=== PATIENT | male | born 1940 | race Caucasian/White ===

== ENCOUNTER → 2023-07-03 09:47 | Outpatient (REF) | payer OTHER, SELFPAY | LOC: HWRAD 09:47 | PROVIDERS: ATTENDING PHYSICIAN Specialist; FAMILY PHYSICIAN Family Medicine | DX: N18.32 Chronic kidney disease, stage 3b (principal); R31.9 Hematuria, unspecified | CPT/HCPCS: 76770 ==

== ENCOUNTER 2023-08-06 14:33 | Emergency (ER) | payer OTHER, SELFPAY ==
[2023-08-06 14:35] VITALS: BP 117/97
[2023-08-06 16:00] VITALS: BP 121/78
--- NOTE | 2023-08-06 17:21 | ED.GENMED ---
History of Present Illness
General
Chief Complaint: Head Injury
Source: patient
Exam Limitations: none
Time Seen by Provider: 08/06/23 15:05
Nursing documentation reviewed up to this point in time: agreed with
Travel History
Have you had any contact with someone who has COVID-19?: No
Do you have any symptoms of coronavirus? Fever > 100 degrees, chills, cough, shortness of breath, sore throat, loss of taste or smell, muscle aches, or headache?: No
History of Present Illness
History of Present Illness:
82 yr old male presents to the ER for evaluation of fall. Patient was outside of his house and slid down embankment hitting his left forehead/eyebrow area on the sidewalk. He denies loss of consciousness. He denies any headache nausea vomiting.
He is not on blood thinners. He also complains of left shoulder plain. He denies any neck or back pain.
Past History
Past History
ED Past Medical History: HTN
Social History
Living: with family
Employment: Employed
Phy Exam
General Physical Exam
General Presentation: no apparent distress
General age: appears stated age
General Skin: warm and dry
General Habitus: elderly
General Mental: alert
General Hydration: appears well hydrated
Eye Exam
Eye Exam: PERRL, EOMI and other (Left eyebrow with 1 cm left flap laceration)
Eye Exam General: PERRL: bilateral and EOM intact: bilateral
Pupil Exam: Bilateral: round and reactive
Neurological Exam
Neurological Exam: alert and oriented x3
Musculoskeletal Exam
Musculoskeletal Exam: other (Abrasion to left forehead normal inspection to left shoulder mildly tender throughout pain with abduction)
Skin Exam
Skin Exam: normal color and warm/dry
Psychiatric Exam
Psychiatric Exam: normal mood/affect
Course
Orders/Labs/Results
Orders:
Orders
08/06/23 14:39
Shoulder, Left, Trauma CR [CR Shoulder, Trauma - Left] Urgent
Comment:
Reason For Exam: injury
08/06/23 15:31
CT Cervical Spine W/o Iv Contr Urgent
Comment:
Reason For Exam: trauma
CT Head W/o Iv Contrast Urgent
Comment:
Reason For Exam: trauma
Tetanus/Diphth/Acelpertussis [Adacel] 0.5 ml IM .ONCE ONE
08/06/23 16:26
CT Upper Ext W/o Iv Cont Lt Urgent
Comment:
Reason For Exam: trauma
08/06/23 17:21
Wound Dressing- Treatment ONCE
Location of Wound: left head
Treatment of Wound: irrigate
Sling Left-Treatment ONCE
Acetaminophen [Tylenol] 650 mg PO NOW STA
08/06/23 17:57
Tetanus/Diphth/Acelpertussis [Adacel] 0.5 ml .ROUTE .STK-MED ONE
Vital Signs
Initial and Last Documented VS:
Initial Vital Signs
Temp Pulse Resp BP Pulse Ox
98 F 62 16 117/97 97
08/06/23 14:35 08/06/23 14:35 08/06/23 14:35 08/06/23 14:35 08/06/23 14:35
Last Documented Vital Signs
Temp Pulse Resp BP Pulse Ox
98 F 67 20 120/79 98
08/06/23 14:35 08/06/23 18:27 08/06/23 18:27 08/06/23 18:27 08/06/23 18:27
Procedures
Laceration Closure
Left Eye:
Status of Wound: clean
Size of Wound in cm: 1
Description of Wound Edges: flap-well vascularized
Preparation: cleaned with saline
Type of Closure: Dermabond-skin glue
MDM/Problems Addressed
Differential Diagnosis Includes:
Not limited to head injury, laceration, shoulder sprain strain versus fracture
MDM/Problems Addressed:
Patient is a 82-year-old male who slipped outside and hit his left head. He had no loss of consciousness. He is not on blood thinners. Patient complains of discomfort to his left shoulder. No headache nausea vomiting neck pain. Patient has an
abrasion to his forehead with a small minor flap laceration to his left eyebrow that was repaired as documented. CT head and cervical spine negative. Shoulder x-ray was done which showed concern for possible nondisplaced fracture CAT scan was done
which was recommended which was unremarkable for fracture. Patient remained very well-appearing in no acute distress no headache. Wound care reviewed shoulder symptoms possible sprain strain he is followed by Dr. Melo discussed importance of
outpatient follow-up.
*Radiology
Radiology exam reviewed: radiology read reviewed
*Pulse Oximetry
Patient hypoxic: no
*Critical Care Note
Total Time (30-74mins, 75-104mins- exclusive of procedures): Not Applicable
ED Attending Note
-
Portions of this chart may have been created with voice recognition software.� Occasional wrong word or��sound alike� substitutions may have occurred due to the inherent limitations of voice recognition software.
Discharge Plan
Departure
Patient Disposition: Home (Routine Discharge)
Date of Disposition: 08/06/23
Time of Disposition: 17:36
Patient with high blood pressure during this ER visit?: Yes
Condition: Fair
Covid-19: Not Applicable
Discharge Problem:
Fall, Left shoulder strain, Contusion, Laceration, Abrasion
Prescriptions:
No Action
oxycodone-acetaminophen [Percocet] 1 EACH tablet
1 tab PO PRN PRN (Reason: pain) Qty: 30 0RF
cephalexin 500 MG capsule
500 mg PO QID Qty: 28 0RF
Referrals:
Liang Melo MD [Active] -
Ant Gauthier MD [Family Provider] -
Activity Restrictions/Additional Instructions:
Ice shoulder as discussed for the next 24 hours 20 minutes at a time several times a day. Wear sling for support but remove several times a day and do range of motion exercises as discussed. Follow-up with family doctor in next several days and
orthopedics if needed
Eyelid laceration: Keep wound clean and dry for 24 hours after 24 hours you may lightly wet wound. Do not apply antibiotic ointment to the area as this will break the glue down the glue will flake off on its own within 5 to 7 days. Follow-up with
your family doctor for recheck of your wound.
For abrasion to left forehead you may wash with soap and water twice a day and apply small layer of antibiotic open to the area
Interventions
Interventions:
*Risk Screen - Suicide Last Done: 08/06/23 14:35
*General Assessment Last Done: 08/06/23 14:35
*Neglect/Abuse Screening Last Done: 08/06/23 14:35
*Nursing Disposition Last Done: 08/06/23 18:27
ED- Neurological Assessment Last Done: 08/06/23 16:00
ED-Skin Assessment Last Done: 08/06/23 16:00
Discharge Date and Time
Discharge Date/Time: 08/06/23 18:27
Print Language: FRISIAN
[2023-08-06] MEDS: TYLENOL 650 MG PO (17:56)
[2023-08-06] MEDS: ADACEL 0.5 ML IM (18:03)
[2023-08-06 18:27] VITALS: BP 120/79
== END 2023-08-06 18:27 | disposition home or self-care (01) ==
LOC: EMR 14:33
PROVIDERS: EMERGENCY PHYSICIAN Emergency Medicine; FAMILY PHYSICIAN Family Medicine
DX: S01.112A Laceration without foreign body of left eyelid and periocular area, initial encounter (principal); S46.912A Strain of unspecified muscle, fascia and tendon at shoulder and upper arm level, left arm, initial encounter; W19.XXXA Unspecified fall, initial encounter; I10 Essential (primary) hypertension; Z23 Encounter for immunization
CPT/HCPCS: 99284; 12011; 90471; 70450; 72125; 73030; 73200; 90715

== ENCOUNTER 2023-09-02 06:33 | Day surgery (SDC) | payer OTHER, SELFPAY ==
[2023-08-26 09:08] VITALS: BMI 25.2
[2023-08-26 10:02] LABS: Urine Albumin Trace (Neg - Trace); Urine Bilirubin Negative (Negative); Urine Character Clear (Clear); Urine Color Yellow; Urine Glucose Negative (Negative); Urine Ketone Negative (Negative); Urine Leukocyte Negative (Negative); Urine Nitrite Negative (Negative); Urine Occult Blood 4+ (Negative); Urine Specific Gravity 1.015 (<1.030); Urine Urobilinogen Negative (Neg - 1+)
[2023-08-26 10:04] LABS: Hematocrit 40.3 % (39.0-52.0); Hemoglobin 13.6 g/dL (13.0-18.0); Mean Corp Hgb Conc. 33.7 g/dL (33.0-37.0); Mean Corpuscular Hgb 30.8 pg (27.0-31.0); Mean Corpuscular Volume 91.2 fL (80.0-94.0); Mean Platelet Volume 9.3 fL (7.4-10.4); Platelet Count 311 10^3/uL (130-400); Red Blood Cell Count 4.42 10^6/uL (4.70-6.10); Red Cell Dist. Width 12.7 % (11.5-14.5)
[2023-08-26 10:07] LABS: INR 1.08; PT 13.8 Sec (11.4-14.6)
[2023-08-26 11:06] LABS: Blood Urea Nitrogen 49 mg/dl (9-20); Calcium 9.2 mg/dl (8.4-10.2); Carbon Dioxide 23 mmol/L (22-30); Chloride 108 mmol/L (98-107); Estimated Creatinine Clearance 26 ml/min; Glucose 60 mg/dl (70-99); Potassium 4.3 mmol/L (3.5-5.1); Sodium 143 mmol/L (135-145); eGFR 28.99
[2023-08-26 11:11] LABS: Urine Bacteria Few (Negative)
[2023-08-26 11:12] LABS: Urine Mucus Few
--- NOTE | 2023-08-27 15:14 | PTCARENOTE ---
Glucose 60, BUN 49 & creatinine 2.2 all collected on 08/26/23; Daniella at 's office was notified.
[2023-09-02] VITALS (10 sets, daily range): BP systolic 121–152; BP diastolic 66–83; BMI 25.2
[2023-09-02] MEDS: CYSVIEW KIT 100 MG INTRAVES (12:34)
[2023-09-02] MEDS: NSS 1000 IV (12:35)
--- NOTE | 2023-09-02 14:34 | W.IMMPOSTOP ---
Surgical Immed Post Op Note
-
Primary Surgeon: Bang
Pre-op Diagnosis: Large bladder tumor (>5 cm)
Post-op Diagnosis: Same
Procedure Performed: blue light TURBT
Anesthesia Type: GETA
Specimen / Cultures: Left lateral wall bladder tumor
Estimated Blood Loss: 5 cc
Drains: 22Fr 3-way Dugan catheter (30 cc in balloon)
Complications: None
Operative Findings:
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
No involvement of bilateral ureteral orifices or evidence of bladder perforation on final cysto/.
Resection down to detrusor muscularis performed.
--- NOTE | 2023-09-02 14:50 | PTCARENOTE ---
addendum - 1425 pt. front left tooth chipped with extubation, in denture container at bedside.
[2023-09-02] MEDS: DETROL LA 2 MG PO (14:58)
--- NOTE | 2023-09-02 15:47 | PTCARENOTE ---
Pt arrived to 2S in bed. Full assessment completed. Front Left tooth noted to be chipped. Tooth remnant in cup at bedside, given to . CBI infusing per order, clear yellow urine draining. Bed locked and in the lowest position, safety
maintained.Oriented to room and call nava, spouse at bedside.
--- NOTE | 2023-09-02 16:14 | W.PN.ADMIT ---
Progress Note - Admit
Progress Note - Admit
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
Resected to muscularis w/ excellent hemostasis and filling/emptying on final cysto.
No involvement of left UO.
- Admit for post-op observation given advanced age and CBI
- TOV in AM
D/w spouse.
[2023-09-02] MEDS: ULTRAM 25 MG PO (21:36)
[2023-09-03 02:10] VITALS: BP 120/66
[2023-09-03 05:56] VITALS: BP 118/67
[2023-09-03] MEDS: Pyridium 200 MG PO (07:52)
[2023-09-03] MEDS: DETROL LA 2 MG PO (07:52)
[2023-09-03 08:00] VITALS: BP 137/71
--- NOTE | 2023-09-03 09:24 | CM ---
Patient with Dx Large bladder tumor who is s/p blue light TURBT. CBI- TOV.
Spoke with patient who resides with his in a 2 story house.
The patient has been independent in ADLs and ambulation.
The patient is active and drives.
The patient has no DME or prior VN.
PCP - Ant Gauthier
Pharmacy - [facility]
The patent declines the offer for VN.
The patient says he feels ready for d/c home today. His is at the bedside and will provide transport home.
No CM d/c needs identified.
Plan home today.
--- NOTE | 2023-09-03 11:53 | W.DS.TRANS ---
DC Summary - Pack Changer
-
Discharge Instructions:
Sleep Apnea Risk Intermediate
Discharge Diagnosis/Procedures Bladder tumor s/p TURBT
Diet Regular
Activity No strenuous activity
Additional Activity No strenuous activity, heavy lifting, or
exercise x7 days
Driving Restrictions No driving for 24 hours
Bathing Restrictions None
Blood Work n/a
Wound Care n/an/a
Instructions:
Stand-Alone Forms:
Changes to Home Medications: No
Discharge Medications:
DC Medications w/original date entered in [employer]
lisinopril 10 mg tablet 10 mg PO DAILY 08/28/23
ciprofloxacin HCl 500 mg tablet 500 mg PO DAILY 3 days #3 tabs 09/03/23
phenazopyridine 200 mg tablet (Pyridium) 200 mg PO BID PRN burning with urination 3 days #6 tabs 09/03/23
Home Medication Changes
Pending Results: Yes
Additional Pending Results:
surgical pathology
Total time spent discharging patient (in min): 25
[2023-09-03] MEDS: FLOMAX 0.400000000000000022 MG PO (12:22)
[2023-09-03 15:00] VITALS: BP 122/67
--- NOTE | 2023-09-03 15:44 | PTCARENOTE ---
Pt voided cumulative 30cc orange urine post catheter removal. PVR >593 Dr Cuenca notified and advised RN to replace indwelling catheter. 18 fr rivera catheter placed using aseptic technique, 600 orange urine drained immediately. Rivera care and leg
bag teaching provided to pt and , both verbalized understanding. No questions at this time. Pt to follow up outpatient with Dr Cuenca this . Care ongoing.
== END 2023-09-03 16:32 | disposition home or self-care (01) ==
LOC: SDS 06:33
PROVIDERS: ATTENDING PHYSICIAN Surgery; FAMILY PHYSICIAN Family Medicine
DX: C67.2 Malignant neoplasm of lateral wall of bladder (principal)
CPT/HCPCS: 52240; 88307; 36415; 80048; 81003; 81015; 85027; 85610; 85730; A9589

== ENCOUNTER → 2023-09-11 12:30 | Outpatient (REF) | payer OTHER, SELFPAY | LOC: MRI 3T 12:30 | PROVIDERS: ATTENDING PHYSICIAN Orthopaedic Surgery; FAMILY PHYSICIAN Family Medicine | DX: M25.512 Pain in left shoulder (principal) | CPT/HCPCS: 73221 ==

== ENCOUNTER → 2023-09-13 14:00 | Outpatient (REF) | payer OTHER, SELFPAY | LOC: RAD 14:00 | PROVIDERS: ATTENDING PHYSICIAN Surgery; FAMILY PHYSICIAN Family Medicine | DX: C67.9 Malignant neoplasm of bladder, unspecified (principal) | CPT/HCPCS: 74176 ==

== ENCOUNTER → 2023-09-19 09:17 | Outpatient (REF) | payer OTHER, SELFPAY | LOC: HWRCS 09:17 | PROVIDERS: ATTENDING PHYSICIAN Internal Medicine Cardiovascular Disease; FAMILY PHYSICIAN Family Medicine | DX: I34.0 Nonrheumatic mitral (valve) insufficiency (principal) | CPT/HCPCS: 93306 ==

== ENCOUNTER 2023-11-12 06:04 | Day surgery (SDC) | payer OTHER, SELFPAY ==
--- NOTE | 2023-10-23 11:03 | CM ---
Patient is scheduled for an elective L Reverse TSA on 11/12/23- he is a same day patient. Spoke with patient prior to surgery. Introduced role of Orthopedic Navigator. Patient reports that he lives with his in a two story home. Currently he
functions independently. He does not use any DME but has a sling. He has never had VN services. PCP is Dr. Ant Gauthier.
Discussed orthopedic program and post surgical plans. Patient will return home when directed by surgeon. Reviewed MD follow up and transition to outpatient therapy. Patient is in agreement with tentative plan and states that his will be home
with him and can assist if needed.
Patient will complete online education.
Plan: Orthopedic Navigator will be involved in the care of patient after surgery and will reassess discharge needs at that time.
[2023-10-25 12:20] VITALS: BMI 25.5
[2023-10-25 13:21] LABS: Hematocrit 37.8 % (39.0-52.0); Hemoglobin 13.3 g/dL (13.0-18.0); Mean Corp Hgb Conc. 35.2 g/dL (33.0-37.0); Mean Corpuscular Hgb 31.7 pg (27.0-31.0); Mean Platelet Volume 9.7 fL (7.4-10.4); Platelet Count 235 10^3/uL (130-400); Red Cell Dist. Width 13.2 % (11.5-14.5); White Blood Cell Count 7.9 10^3/uL (4.8-10.8)
[2023-10-25 13:56] LABS: Glycohemoglobin (HgbA1c) 4.9 % (4.0-5.6)
[2023-10-25 14:05] LABS: ALT (SGPT) 15 U/L (0-50); AST (SGOT) 22 U/L (17-59); Alkaline Phosphatase 81 U/L (38-126); Blood Urea Nitrogen 41 mg/dl (9-20); Calcium 9.4 mg/dl (8.4-10.2); Carbon Dioxide 24 mmol/L (22-30); Chloride 107 mmol/L (98-107); Estimated Creatinine Clearance 27 ml/min; Glucose 74 mg/dl (70-99); Potassium 4.6 mmol/L (3.5-5.1); Sodium 140 mmol/L (135-145); Total Bilirubin 1.1 mg/dl (0.2-1.3); Total Protein 6.5 g/dl (6.3-8.2); eGFR 30.47
[2023-11-05 10:42] VITALS: BMI 25.5
[2023-11-12] VITALS (9 sets, daily range): BP systolic 122–150; BP diastolic 49–78
[2023-11-12] MEDS: CELEBREX 200 MG PO (06:17)
[2023-11-12] MEDS: TYLENOL 1000 MG PO (06:17)
[2023-11-12] MEDS: VANCOCIN 200 IV (06:24)
[2023-11-12] MEDS: ANCEF 5 IV (11:04)
== END 2023-11-12 11:36 | disposition home or self-care (01) ==
LOC: SDS 06:04
PROVIDERS: ATTENDING PHYSICIAN Specialist; FAMILY PHYSICIAN Family Medicine; OTHER PHYSICIAN Internal Medicine Cardiovascular Disease; OTHER PHYSICIAN Surgery
DX: M19.012 Primary osteoarthritis, left shoulder (principal); Z96.612 Presence of left artificial shoulder joint
CPT/HCPCS: 23472; C1776; C1713; 36415; 73020; 80053; 83036; 85027; 87070; 87147

== ENCOUNTER 2023-12-13 07:59 | Outpatient (RCR) | payer OTHER, SELFPAY | END 2023-12-13 23:59 | disposition home or self-care (01) | LOC: RPT 07:59 | PROVIDERS: ATTENDING PHYSICIAN Physician Assistant Surgical; FAMILY PHYSICIAN Family Medicine | DX: Z47.1 Aftercare following joint replacement surgery (principal); Z73.6 Limitation of activities due to disability; Z96.612 Presence of left artificial shoulder joint | CPT/HCPCS: 97010; 97110; 97140; 97161 ==

== ENCOUNTER 2023-12-30 06:29 | Day surgery (SDC) | payer OTHER, SELFPAY ==
[2023-12-30] VITALS (12 sets, daily range): BP systolic 114–160; BP diastolic 73–92; BMI 25.6
[2023-12-30] MEDS: CYSVIEW KIT 100 MG INTRAVES (13:45)
[2023-12-30] MEDS: NORMOSOL-R/PLASMALYTE-A 1000 IV (13:47)
[2023-12-30] MEDS: SYRINGE NON-PUMP 50 MG IRRIG ×2 (17:25→17:26)
[2023-12-30] MEDS: SYRINGE NON-PUMP 50 ML IRRIG ×2 (17:25→17:26)
== END 2023-12-30 19:01 | disposition home or self-care (01) ==
LOC: SDS 06:29
PROVIDERS: ATTENDING PHYSICIAN Surgery
DX: C67.4 Malignant neoplasm of posterior wall of bladder (principal)
CPT/HCPCS: 52235; 51720; C9738; 88307; A9589; J9201

== ENCOUNTER 2024-01-10 06:37 | Outpatient (RCR) | payer OTHER, SELFPAY | END 2024-01-10 23:59 | disposition home or self-care (01) | LOC: RPT 06:37 | PROVIDERS: ATTENDING PHYSICIAN Physician Assistant Surgical; FAMILY PHYSICIAN Family Medicine | DX: Z47.1 Aftercare following joint replacement surgery (principal); Z96.612 Presence of left artificial shoulder joint; Z73.6 Limitation of activities due to disability | CPT/HCPCS: 97010; 97110; 97140 ==

== ENCOUNTER 2024-02-10 14:56 | Outpatient (RCR) | payer OTHER, SELFPAY | END 2024-02-10 23:59 | disposition home or self-care (01) | LOC: RPT 14:56 | PROVIDERS: ATTENDING PHYSICIAN Physician Assistant Surgical; FAMILY PHYSICIAN Family Medicine | DX: Z47.1 Aftercare following joint replacement surgery (principal); Z73.6 Limitation of activities due to disability; M62.81 Muscle weakness (generalized); M25.512 Pain in left shoulder; Z96.612 Presence of left artificial shoulder joint | CPT/HCPCS: 97010; 97110; 97140 ==

== ENCOUNTER → 2024-02-11 17:42 | Outpatient (REF) | payer OTHER, SELFPAY | LOC: MRI 3T 17:42 | PROVIDERS: ATTENDING PHYSICIAN Student in an Organized Health Care Education/Training Program; FAMILY PHYSICIAN Family Medicine | DX: M79.672 Pain in left foot (principal) | CPT/HCPCS: 73718 ==

== ENCOUNTER 2024-03-09 06:50 | Outpatient (RCR) | payer OTHER, SELFPAY | END 2024-03-09 23:59 | disposition home or self-care (01) | LOC: RPT 06:50 | PROVIDERS: ATTENDING PHYSICIAN Physician Assistant Surgical; FAMILY PHYSICIAN Family Medicine | DX: Z47.1 Aftercare following joint replacement surgery (principal); M62.81 Muscle weakness (generalized); Z73.6 Limitation of activities due to disability; M25.512 Pain in left shoulder; Z96.612 Presence of left artificial shoulder joint | CPT/HCPCS: 97010; 97110; 97112; 97140 ==

== ENCOUNTER 2024-04-13 09:03 | Outpatient (RCR) | payer OTHER, SELFPAY | END 2024-04-13 23:59 | disposition home or self-care (01) | LOC: RPT 09:03 | PROVIDERS: ATTENDING PHYSICIAN Physician Assistant Surgical; FAMILY PHYSICIAN Family Medicine | DX: Z47.1 Aftercare following joint replacement surgery (principal); M62.81 Muscle weakness (generalized); Z73.6 Limitation of activities due to disability; M25.512 Pain in left shoulder; Z96.612 Presence of left artificial shoulder joint | CPT/HCPCS: 97010; 97110; 97140 ==

== ENCOUNTER 2024-05-13 09:08 | Outpatient (RCR) | payer OTHER, SELFPAY | END 2024-05-13 23:59 | disposition home or self-care (01) | LOC: RPT 09:08 | PROVIDERS: ATTENDING PHYSICIAN Physician Assistant Surgical; FAMILY PHYSICIAN Family Medicine | DX: Z47.1 Aftercare following joint replacement surgery (principal); M62.81 Muscle weakness (generalized); Z73.6 Limitation of activities due to disability; M25.512 Pain in left shoulder; C67.9 Malignant neoplasm of bladder, unspecified; Z96.612 Presence of left artificial shoulder joint | CPT/HCPCS: 97010; 97110; 97140; 97161 ==

== ENCOUNTER 2024-06-12 07:59 | Outpatient (RCR) | payer OTHER, SELFPAY | END 2024-06-12 23:59 | disposition home or self-care (01) | LOC: RPT 07:59 | PROVIDERS: ATTENDING PHYSICIAN Physician Assistant Surgical; FAMILY PHYSICIAN Family Medicine | DX: Z47.1 Aftercare following joint replacement surgery (principal); Z73.6 Limitation of activities due to disability; M62.81 Muscle weakness (generalized); C67.9 Malignant neoplasm of bladder, unspecified; Z96.612 Presence of left artificial shoulder joint; M25.512 Pain in left shoulder | CPT/HCPCS: 97010; 97110; 97140 ==

== ENCOUNTER 2024-07-06 09:05 | Outpatient (RCR) | payer OTHER, SELFPAY | END 2024-07-06 23:59 | disposition home or self-care (01) | LOC: RPT 09:05 | PROVIDERS: ATTENDING PHYSICIAN Physician Assistant Surgical; FAMILY PHYSICIAN Family Medicine | DX: Z47.1 Aftercare following joint replacement surgery (principal); M62.81 Muscle weakness (generalized); Z73.6 Limitation of activities due to disability; C67.9 Malignant neoplasm of bladder, unspecified; Z96.612 Presence of left artificial shoulder joint; M25.512 Pain in left shoulder | CPT/HCPCS: 97010; 97110; 97140 ==

== ENCOUNTER 2024-07-24 07:03 | Outpatient (RCR) | payer OTHER, SELFPAY | END 2024-07-24 13:12 | disposition home or self-care (01) | LOC: RPT 07:03 | PROVIDERS: ATTENDING PHYSICIAN Physician Assistant Surgical; FAMILY PHYSICIAN Family Medicine | DX: Z47.1 Aftercare following joint replacement surgery (principal); Z96.612 Presence of left artificial shoulder joint; M62.81 Muscle weakness (generalized); Z73.6 Limitation of activities due to disability; C67.9 Malignant neoplasm of bladder, unspecified; M25.512 Pain in left shoulder | CPT/HCPCS: 97010; 97110; 97140 ==

== ENCOUNTER 2024-12-15 18:16 | Emergency (ER) | payer OTHER, SELFPAY ==
[2024-12-15 18:35] VITALS: BP 152/59
[2024-12-15 19:54] VITALS: BMI 24.5
[2024-12-15 19:56] VITALS: BP 113/62
[2024-12-15 20:00] VITALS: BP 124/66
--- NOTE | 2024-12-15 20:02 | ED.GENMED ---
History of Present Illness
General
Chief Complaint: Head Injury
Source: patient and family
Exam Limitations: none
Time Seen by Provider: 12/15/24 19:50
Nursing documentation reviewed up to this point in time: agreed with
History of Present Illness
History of Present Illness:
Note:
CHIEF COMPLAINT(S)
Headache and weakness.
HISTORY OF PRESENT ILLNESS
The patient is an 84-year-old male who presented to the emergency department with complaints of headache and weakness. The onset of symptoms began following an incident at a hardware store, after which the patient was found to have bleeding inside
the brain. This led to an admission to [facility], where a diagnosis of intracranial bleeding was made. The patient was discharged from there on Saturday, with the bleed having started on .
Currently, the patient reports persistent pain in the frontal and posterior regions of the head. It remains unchanged from previous days, with added weakness noted, particularly on the left side. The patient describes challenges in ambulating and a
general feeling of fatigue. CT imaging suggests an acute intracranial bleed, possibly with further bleeding. A skull fracture on the left side has been identified, but without displacement.
There is also a mention of subdural hematoma and an additional bleed in the posterior area, differing from the findings upon his prior imaging. The patient articulates that the symptoms interfere with daily activities, such as standing up, due to
the weakness.
CHRONIC MEDICAL CONDITIONS SIGNIFICANTLY AFFECTING CARE
The patient is currently on Lisinopril, which is notably for blood pressure management.
SOCIAL DETERMINANTS AFFECTING HEALTH
The patient denies smoking and alcohol use.
REVIEW OF SYSTEMS
- Neurological: Headache, weakness on the left side, difficulty ambulating.
- Musculoskeletal: Weakness noted while lifting legs.
PHYSICAL EXAM
General: Alert, reports pain and weakness.
Skin: Warm, dry.
Head: Normocephalic, atraumatic with noted intracranial bleed and skull fracture identified in CT imaging.
Neck: Supple, trachea midline.
Eye, Ears, Nose, and Throat: Oral mucosa moist.
Cardiovascular: Normal peripheral perfusion, No edema.
Respiratory: Respirations are non-labored.
Gastrointestinal: Abdomen nondistended.
Back: Normal range of motion, Normal alignment.
Musculoskeletal: Normal range of motion, reduced strength due to weakness.
Neurological: Alert and oriented to person, place, time, and situation. Reports of left side weakness.
Psychiatric: Cooperative, appropriate mood & affect.
PROBLEM LIST
- Acute: Intracranial hemorrhage, possible further bleeding, left-sided weakness.
- Chronic: Hypertension
PLAN
The plan involves consultation and possible transfer to a facility with neurosurgical capabilities, as the current facility is not equipped as a trauma center. A discussion with the team at [facility] will be initiated to align care strategies.
Neurosurgical evaluation is necessary to determine if active intervention or continued observation is required for the intracranial bleed. The patient will not be discharged home given the current symptoms and CT imaging findings.
DIFFERENTIAL DIAGNOSIS
The Differential Diagnosis includes, in no particular order and is not limited to:
1. Intracranial hemorrhage
2. Subdural hematoma
3. Intracerebral hemorrhage
4. Subarachnoid hemorrhage
5. Traumatic brain injury
6. Ischemic stroke
7. Hypertensive crisis
8. Skull fracture
9. Cerebral amyloid angiopathy
10. Brain tumor
The clinical judgment indicated the need for further evaluation and possibly neurosurgical consultation to confirm the diagnosis and establish a precise treatment path.
CARE-UPDATE
12/16/24 - 03:12
The patient has been referred for a neurosurgery evaluation following a discussion with trauma surgery. Admission to the emergency department at [facility] has been finalized for further assessment and management of the subdural
hematoma and interparenchymal hemorrhage.
Disposition:
SUMMARY OF ENCOUNTER
The patient, an 84-year-old male, presented to the emergency department complaining of headache and weakness. Symptoms developed after an episode at a hardware store leading to intracranial bleeding. A CT scan indicated an acute intracranial bleed
and a skull fracture without displacement. The clinical examination showed persistent headaches and left-sided weakness impacting daily activities. Due to the complexity of the condition, neurosurgical evaluation is considered necessary.
DISPOSITION
Transfer to [facility].
ASSESSMENT
Intracranial hemorrhage, intraparenchymal hemorrhage, subdural hematoma with a condition stated as good.
MANAGEMENT OF THE PATIENTS CARE WAS DISCUSSED WITH
A discussion was held with the trauma surgery team and arrangements were made for neurosurgical evaluation at [facility].
PLAN
Further evaluation and management by neurosurgical specialists at a facility equipped with trauma capabilities is essential due to the intracranial bleed and suspected additional intracranial injuries.
MEDICAL DECISION MAKING
1. Number and Complexity of Problems Addressed:
Chronic conditions affecting care include hypertension. Differential diagnosis includes intracranial hemorrhage, subdural hematoma, intracerebral hemorrhage, subarachnoid hemorrhage, traumatic brain injury, ischemic stroke, hypertensive crisis,
skull fracture, cerebral amyloid angiopathy, and brain tumor.
2. Data:
-Category 1: Tests and documents
A CT scan indicated an intracranial bleed and skull fracture.
-Category 3: Discussion of management with other physician, healthcare provider, other source:
There was a discussion with a team at [facility] for transfer and neurosurgical intervention.
3. Risk:
Decisions regarding escalated care were made due to the increased risk of morbidity from potential further intracranial bleeding and neurosurgical concerns.
DIAGNOSIS
- Intracranial hemorrhage (ICD-10: I61.9)
- Intraparenchymal hemorrhage (ICD-10: I61.8)
- Subdural hematoma (ICD-10: I62.00)
Past History
Past History
ED Past Medical History: HTN
Social History
Living: with family
Employment: Employed
Phy Exam
Physical Exam
Physical Exam:
.
Course
Orders/Labs/Results
Orders:
Orders
12/15/24 18:44
CT Head W/o Iv Contrast Urgent
Comment:
Reason For Exam: headache, headbleed on
12/15/24 20:07
IV Insert/Care/Rem.- Treatment PRN
12/15/24 20:10
Complete Blood Count/With Diff Urgent
Comprehensive Metabolic Panel Urgent
PTT Urgent
Prothrombin Time Urgent
Abnormal Lab Results
12/15/24
20:10
WBC 15.7 H 10^3/uL
(4.8-10.8)
RBC 4.34 L 10^6/uL
(4.70-6.10)
Hct 38.6 L %
(39.0-52.0)
Abs Immat Gran (auto) 0.1 H 10^3/uL
(0-0.05)
Absolute Neuts (auto) 11.5 H 10^3/uL
(1.4-6.5)
Absolute Monos (auto) 1.7 H 10^3/uL
(0.1-0.6)
Lymphocytes % 14.9 L %
(20.5-51.1)
Monocytes % 11.0 H %
(1.7-9.3)
PT 15.1 H Sec
(11.4-14.6)
BUN 25 H mg/dl
(9-20)
Creatinine 2.3 H mg/dL
(0.7-1.3)
Glucose 110 H mg/dl
(70-99)
12/15/24 20:10
12/15/24 20:10
Vital Signs
Initial and Last Documented VS:
Initial Vital Signs
Temp Pulse Resp BP Pulse Ox
99.1 F 72 18 152/59 96
12/15/24 18:35 12/15/24 18:35 12/15/24 18:35 12/15/24 18:35 12/15/24 18:35
Last Documented Vital Signs
Temp Pulse Resp BP Pulse Ox
97.9 F 79 17 123/63 95
12/15/24 21:43 12/15/24 22:30 12/15/24 22:30 12/15/24 22:00 12/15/24 22:30
*Pulse Oximetry
SaO2: 96
Oxygen Mode of Delivery: Room air
Patient hypoxic: no
*Critical Care Note
Total Time (30-74mins, 75-104mins- exclusive of procedures): 32
comment:
Critical care statement: A total of 32 minutes of critical care time was provided for this patient. This includes management of unstable vital signs, evaluation of the patient at bedside, reviewing the patient's pertinent medical records, discussion
with consultants, review of old EKGs and review of pertinent medical records. This time with separate from time utilized to perform the aforementioned documented procedures
ED Attending Note
-
Portions of this chart may have been created with voice recognition software.� Occasional wrong word or��sound alike� substitutions may have occurred due to the inherent limitations of voice recognition software.
Discharge Plan
Departure
Patient Disposition: [facility]
Date of Disposition: 12/15/24
Time of Disposition: 20:21
Patient with high blood pressure during this ER visit?: No
Condition: Fair
Discharge Problem:
Acute subdural hematoma, Intraparenchymal hematoma of brain
Prescriptions:
No Action
lisinopril 10 mg Tablet
5 mg PO DAILY
levetiracetam 500 mg Tablet
500 mg PO Q12H
Patient Comments:
take 1 tablet (500mg) by mouth every 12 hours for 6 days. started on 12/12/24
acetaminophen 500 mg Tablet
500 mg PO Q6H
Patient Comments:
take 2 tablets (1000mg total) every 6 hours for 10 days. started on 12/12/24
finasteride 5 mg Tablet
5 mg PO DAILY
Referrals:
Ant Gauthier MD [Family Provider, [facility]]
Hospital Transfer
Other hospital: [facility]
I certify that the patient requires transfer: Yes
Discussed case with accepting physician: Vicenta
Reason for transfer: higher level of care and specialties available
Interventions
Interventions:
*Risk Screen - Suicide Last Done: 12/15/24 18:46
*General Assessment Last Done: 12/15/24 20:02
*Neglect/Abuse Screening Last Done: 12/15/24 18:46
*ED- Fall Risk Assessment Last Done: 12/15/24 20:02
*ED COVID-19 Vaccine History Last Done: 12/15/24 20:02
*Nursing Disposition Last Done: 12/15/24 22:45
ED- Neurological Assessment Last Done: 12/15/24 20:00
ED-Skin Assessment Last Done: 12/15/24 20:00
Discharge Date and Time
Discharge Date/Time: 12/15/24 22:49
Print Language: PERSIAN
[2024-12-15 20:17] LABS: Hematocrit 38.6 % (39.0-52.0); Hemoglobin 13.4 g/dL (13.0-18.0); Mean Corp Hgb Conc. 34.7 g/dL (33.0-37.0); Mean Corpuscular Volume 88.9 fL (80.0-94.0); Nucleated Red Blood Cells % 0 % (-); Platelet Count 224 10^3/uL (130-400); Red Cell Dist. Width 12.7 % (11.5-14.5)
[2024-12-15 20:27] LABS: INR 1.16; PT 15.1 Sec (11.4-14.6)
[2024-12-15 20:28] LABS: APTT 34.6 Sec (23.4-35.0)
[2024-12-15 20:36] LABS: ALT (SGPT) 34 U/L (0-50); AST (SGOT) 31 U/L (17-59); Albumin 3.7 g/dl (3.5-5.0); Alkaline Phosphatase 90 U/L (38-126); Blood Urea Nitrogen 25 mg/dl (9-20); Calcium 9.3 mg/dl (8.4-10.2); Carbon Dioxide 24 mmol/L (22-30); Chloride 106 mmol/L (98-107); Estimated Creatinine Clearance 26 ml/min; Glucose 110 mg/dl (70-99); Potassium 4.2 mmol/L (3.5-5.1); Sodium 135 mmol/L (135-145); Total Protein 6.6 g/dl (6.3-8.2); eGFR 27.15
[2024-12-15 21:00] VITALS: BP 138/67
[2024-12-15 22:00] VITALS: BP 123/63
== END 2024-12-15 22:49 | disposition short-term general hospital (02) ==
LOC: EMR 18:16
PROVIDERS: EMERGENCY PHYSICIAN Emergency Medicine; FAMILY PHYSICIAN Family Medicine
DX: S06.5XAA Traumatic subdural hemorrhage with loss of consciousness status unknown, initial encounter (principal); X58.XXXA Exposure to other specified factors, initial encounter; I10 Essential (primary) hypertension
CPT/HCPCS: 99291; 70450; 80053; 85025; 85610; 85730